=== PATIENT | male | born 1955 | race Caucasian/White ===

== ENCOUNTER 2018-04-28 05:52 | Inpatient (IN) | payer MEDICAID ==
[2018-04-27 12:32] LABS: BASOPHILS % (AUTO) 0.3 % (0-1); EOSINOPHILS # (AUTO) 0.2 X10'3 (0-0.9); EOSINOPHILS % (AUTO) 2.1 % (0-6); LYMPHOCYTES # (AUTO) 1.4 X10'3 (1.1-4.8); LYMPHOCYTES % (AUTO) 17.5 % (21-51); MEAN CORPUSCULAR HEMOGLOBIN 33.4 PG (27.0-31.0); MEAN CORPUSCULAR HGB CONC 35.2 % (33.0-36.5); MEAN CORPUSCULAR VOLUME 94.7 FL (78-98); MEAN PLATELET VOLUME 8.2 FL (7.4-10.4); MONOCYTES # (AUTO) 0.3 X10'3 (0-0.9); MONOCYTES % (AUTO) 4.4 % (2-12); NEUTROPHILS # (AUTO) 5.9 X10'3 (1.8-7.7); NEUTROPHILS % (AUTO) 75.7 % (42-75); PRE OP HEMATOCRIT 43.5 % (42.0-52.0); PRE OP HEMOGLOBIN 15.3 g/dL (14.0-17.9); PRE OP PLATELET COUNT 235 X10'3 (140-440); RED BLOOD COUNT 4.59 X10'6 (4.70-6.10); RED CELL DISTRIBUTION WIDTH 12.9 % (11.5-14.5)
[2018-04-27 12:49] LABS: ALBUMIN/GLOBULIN RATIO 1.3 (1.1-1.5); ALKALINE PHOSPHATASE 66 IU/L (46-116); BLOOD UREA NITROGEN 17 MG/DL (7-18); BUN/CREATININE RATIO 14.7 (5.4-32.0); CALCIUM 9.2 MG/DL (8.5-10.1); CHLORIDE 107 MMOL/L (99-107); CREATININE 1.16 MG/DL (0.60-1.10); PRE OP ALT 36 U/L (30-65); PRE OP ANION GAP 10 (8-16); PRE OP AST 21 U/L (10-37); PRE OP BILIRUB, TOTAL 1.4 MG/DL (0.0-1.0); PRE OP GLUCOSE 96 MG/DL (70-104); PRE OP POTASSIUM 3.8 MMOL/L (3.4-5.1); PRE OP SODIUM 146 MMOL/L (135-145); TOTAL CARBON DIOXIDE 29.1 MMOL/L (24-32); TOTAL PROTEIN 7.2 G/DL (6.4-8.2); eGFR 63 ML/MIN
[~2018-04-28] VITALS: Ht 188 cm; Wt 76.0 kg
[2018-04-28] VITALS (25 sets, daily range): BP systolic 112–175; BP diastolic 61–103
[~2018-04-28 05:52] MED LIST: ASCO500C15 PO; CALC1TAB PO; IBUP-1984 PO; ceFAZolin inj. 2,000 MG in normal saline 100ml IV soln 100 ML IV ONE; famotidine 20mg tablet PO ONE; ringers solution, lacted 1,000 ML IV SCH
[2018-04-28] MEDS ORDERED: ceFAZolin 1000mg inj ONE (06:02)
[2018-04-28] MEDS ORDERED: LIDOcaine 1% (10mg/ml) 2ml vial ONE (06:07)
[2018-04-28] MEDS ORDERED: propofol inj 20 ML IV ONE ×2 (06:42)
[2018-04-28] MEDS ORDERED: fentaNYL /PF 50mcg/ml 5ml ampule ONE (06:44)
[2018-04-28] MEDS ORDERED: ePHEDrine 50MG/ML INJ. ONE (06:46)
[2018-04-28] MEDS ORDERED: ondansetron/PF 4mg/2ml inj ONE (09:25)
[2018-04-28] MEDS ORDERED: dexamethasone sod phosphate 10mg/ml inj ONE (09:25)
[2018-04-28] MEDS ORDERED: sevoflurane 250ml liquid IH ONE (09:25)
[2018-04-28] MEDS ORDERED: neostigmine methylsulfate 1 MG/ML 10ml vial ONE (10:41)
[2018-04-28] MEDS ORDERED: glycopyrrolate 0.2mg/ml inj ONE (10:41)
[2018-04-28] MEDS ORDERED: BUPIVAcaine/PF 2.5 mg/ml (0.25%) 30ml vial IJ ONE (10:45)
[2018-04-28] MEDS ORDERED: ringers solution, lacted 1,000 ML IV ONE (11:01)
[2018-04-28] MEDS ORDERED: fentaNYL/PF 50MCG/1 ML 2ML syringe IV PRN ×2 (11:05)
[2018-04-28] MEDS ORDERED: labetalol 20mg/4ml (5mg/ml) syringe IV PRN (11:05)
[2018-04-28] MEDS ORDERED: proMETHazine 25mg rectal suppository RC PRN (11:05)
[2018-04-28] MEDS ORDERED: meperidine/PF 25mg/ml syringe IV PRN (11:05)
[2018-04-28] MEDS ORDERED: ondansetron/PF 4mg/2ml inj IV PRN (11:05)
[2018-04-28] MEDS ORDERED: proCHLORperazine 10 MG/2 ml inj IV PRN (11:05)
[2018-04-28] MEDS ORDERED: HYDROmorphone inj. 0.5 MG/0.5 ML DISP.SYRIN IV PRN ×2 (11:05)
[2018-04-28] MEDS ORDERED: hydrALAZINE 20mg/ml inj. IV PRN (11:05)
[2018-04-28] MEDS ORDERED: HYDROmorphone 1 mg/ml syringe IV PRN (11:08)
[2018-04-28] MEDS ORDERED: traMADol 50MG tablet PO PRN (11:15)
[2018-04-28] MEDS: HYDROmorphone 1 mg/ml syringe IV PRN ×2 (12:36→13:05)
[2018-04-28] MEDS: normal saline 1000ml 1,000 ML IV SCH ×2 (15:48→21:15)
[2018-04-28] MEDS: traMADol 50MG tablet PO PRN ×2 (19:23→23:20)
[2018-04-28] MEDS: ondansetron/PF 4mg/2ml inj IV PRN (19:48)
[2018-04-28] MEDS ORDERED: morphine 2 MG/ML inj. syringe IV PRN (20:05)
[2018-04-29] VITALS: BP 139/83
[2018-04-29 05:30] LABS: BASOPHILS % (AUTO) 0.2 % (0-1); EOSINOPHILS # (AUTO) 0.2 X10'3 (0-0.9); EOSINOPHILS % (AUTO) 1.6 % (0-6); HEMATOCRIT 37.8 % (42.0-52.0); HEMOGLOBIN 13.1 g/dl (14.0-17.9); LYMPHOCYTES # (AUTO) 1.2 X10'3 (1.1-4.8); LYMPHOCYTES % (AUTO) 10.5 % (21-51); MEAN CORPUSCULAR HGB CONC 34.7 % (33.0-36.5); MEAN CORPUSCULAR VOLUME 94.9 FL (78-98); MEAN PLATELET VOLUME 8.7 FL (7.4-10.4); MONOCYTES # (AUTO) 0.6 X10'3 (0-0.9); MONOCYTES % (AUTO) 5.2 % (2-12); NEUTROPHILS # (AUTO) 9.1 X10'3 (1.8-7.7); NEUTROPHILS % (AUTO) 82.5 % (42-75); PLATELET COUNT 201 X10'3 (140-440); RED BLOOD COUNT 3.98 X10'6 (4.70-6.10); RED CELL DISTRIBUTION WIDTH 12.6 % (11.5-14.5); WHITE BLOOD COUNT 11.1 X10'3 (4.5-11.0)
[2018-04-29 07:00] VITALS: BP 126/75
[2018-04-29] MEDS: normal saline 1000ml 1,000 ML IV SCH ×3 (07:15→20:12)
[2018-04-29] MEDS: ibuprofen tablet 400 MG TABLET PO PRN ×2 (11:06→16:54)
[2018-04-29 11:46] VITALS: BP 122/70
[2018-04-29] MEDS: ondansetron/PF 4mg/2ml inj IV PRN (12:51)
[2018-04-29 20:00] VITALS: BP 122/75
[2018-04-30] VITALS: BP 118/77
[2018-04-30] MEDS: ibuprofen tablet 400 MG TABLET PO PRN ×3 (00:42→11:17)
[2018-04-30] MEDS: normal saline 1000ml 1,000 ML IV SCH (05:13)
[2018-04-30 07:00] VITALS: BP 136/83
[2018-04-30] MEDS ORDERED: ONDA4TAB6 PO (09:32)
== END 2018-04-30 12:00 | disposition home or self-care (01) | DRG 228 ==
LOC: PAS 05:52 → SUR 3N 11:14
PROVIDERS: ADMIT Surgery; ATTEND Surgery
PROC: 0YJ54ZZ Inspection of Right Inguinal Region, Percutaneous Endoscopic Approach (ICD-10-PCS; 2018-04-28)
PROC: 0YU50JZ Supplement Right Inguinal Region with Synthetic Substitute, Open Approach (ICD-10-PCS; principal; 2018-04-28 09:25)
DX: K40.91 Unilateral inguinal hernia, without obstruction or gangrene, recurrent (principal); R33.9 Retention of urine, unspecified; Z85.46 Personal history of malignant neoplasm of prostate
CPT/HCPCS: 36415; 80053; 85025; 87070; 93005; A4315; A6212; A6213; A6258; C1713; C1727; C1781; J0690; J1100; J1170; J2175; J2405; J2704; J2710; J3010; J3490; J7030; J7120